=== PATIENT | male | born 1970 | race Caucasian/White ===

== ENCOUNTER 2021-04-08 07:39 | Emergency (ER) | payer OTHER ==
[~2021-04-08 07:39] MED LIST: CIPROFLOXACIN500 MG PO; DUONEB 3 MG/3 ML3 M1 INH; FLAGYL500 MG PO; ZANTAC150 MG PO; ZOFRAN4 MG PO
[2021-04-08 08:18] LABS: BASO % 0.6 % (0.0-1.0); EOS # 0.2 10*3/uL (0.0-0.4); EOS % 2.5 % (1.0-4.0); HEMATOCRIT 42.4 % (42.0-52.0); LYMPH # 1.4 10*3/uL (1.3-4.4); MEAN CELL VOLUME 83.6 fl (80.0-94.0); MEAN CORPUSCULAR HGB CONC 32.3 g/dl (33.0-37.0); MONO # 0.5 10*3/uL (0.1-1.0); MONO % 7.3 % (3.0-9.0); NEUT # 4.7 10*3/uL (2.3-7.9); NEUT % 68.2 % (47.0-73.0); PLATELET COUNT AUTOMATED 287 10*3/uL (130-400); RED BLOOD COUNT 5.07 10*6/uL (4.50-5.90); RED CELL DISTRI WIDTH 14.3 % (0-14.5); WHITE BLOOD COUNT 6.8 10*3/uL (4.8-10.8)
[2021-04-08 08:36] LABS: ALBUMIN 3.6 gm/dl (3.1-4.5); ALKALINE PHOSPHATASE 82 U/L (45-117); BUN 27 mg/dl (7-24); CHLORIDE 107 mmol/L (98-107); LIPASE 110 U/L (73-393); SGOT/AST 20 IU/L (3-35); SGPT/ALT 29 U/L (12-78); SODIUM 138 mmol/L (136-145); TOTAL PROTEIN 6.9 gm/dL (6.4-8.2)
[2021-04-08 08:38] LABS: TROPONIN I < 0.015 ng/ml (<0.045)
[2021-04-08] MEDS ORDERED: MECLIZINE HCL25 M2 PO (13:20)
== END 2021-04-08 13:42 | disposition home or self-care (01) ==
LOC: ED 07:39
PROVIDERS: Emergency Medicine
DX: R42 Dizziness and giddiness (principal); Z88.0 Allergy status to penicillin; Z88.6 Allergy status to analgesic agent

== ENCOUNTER 2021-11-12 19:20 | Emergency (ER) | payer OTHER ==
[~2021-11-12] VITALS: Ht 182.8 cm; Wt 135.2 kg
[~2021-11-12 19:20] MED LIST changes: +MECLIZINE HCL25 M2 PO
== END 2021-11-12 21:31 | disposition home or self-care (01) ==
LOC: ED 19:20
DX: S61.411A Laceration without foreign body of right hand, initial encounter (principal); Z88.0 Allergy status to penicillin; Z88.8 Allergy status to other drugs, medicaments and biological substances; W45.8XXA Other foreign body or object entering through skin, initial encounter; Y93.89 Activity, other specified; Y92.89 Other specified places as the place of occurrence of the external cause; Y99.8 Other external cause status